=== PATIENT | male | born 1980 | race Caucasian/White ===

== ENCOUNTER 2017-08-05 10:39 | Emergency (ER) | payer OTHER ==
[~2017-08-05] VITALS: Ht 177.8 cm; Wt 86.9 kg
[2017-08-05 10:40] VITALS: BP 153/93
[2017-08-05] MEDS ORDERED: KETOROLAC 30 MG/1 ML ONE (11:22)
[2017-08-05] MEDS ORDERED: PLEASE ENTER ALLERGIES MC SCH (11:30)
[2017-08-05] MEDS ORDERED: KETOROLAC 30 MG/1 ML IM ONE (11:30)
== END 2017-08-05 11:54 | disposition home or self-care (01) ==
LOC: ED 11:48
DX: S90.01XA Contusion of right ankle, initial encounter (principal); X50.1XXA Overexertion from prolonged static or awkward postures, initial encounter; Y93.89 Activity, other specified; Y92.79 Other farm location as the place of occurrence of the external cause; Y99.8 Other external cause status
CPT/HCPCS: 73590; 73610; 96372; 99284; J1885